=== PATIENT | female | born 2000 | race Caucasian/White ===

== ENCOUNTER 2019-06-23 12:23 | Outpatient (REF) | payer BC, SELFPAY ==
--- NOTE | 2019-06-23 11:15 | PAPFT_PTH ---
PATIENT: SANJAY OLIVARES LOC: [facility] U#:[id number] AGE/SX: 19/F ROOM: RE06/23/[address]: ANKUR Zuluaga : 2000 BED: DIS: 06/23/2019 SPEC #: [id number] RECD: 06/23/19 16:26 STATUS: BCEKY REIgnacio #: [id number] ZAY: 06/23/19 11:[address]: Mackenzie Berrios DEPT: [facility] Cytology RECD BY: Belkys Cai ENTERED: 06/23/19 16:26 SP TYPE: PAPFT JOSE DR: Susan Sunshine MD Tissues: 1 - CX/ENDOCX FOR PAP SMEARS Procedures: PAP THIN PREP/[facility] Screening Comments: [id number] (CHLAMYDIA/GC)
[2019-06-25 15:08] LABS: Chlamydia Result Negative (Negative)
[2019-06-28 14:20] LABS: GC Result Negative (Negative)
== END 2019-06-23 12:43 ==
LOC: LBN 12:23
PROVIDERS: PCP Family Medicine; Visit Provider Nurse Practitioner Family
DX: Z12.4 Encounter for screening for malignant neoplasm of cervix (principal); Z11.3 Encounter for screening for infections with a predominantly sexual mode of transmission
CPT/HCPCS: 87491; 87591; 88142